=== PATIENT | female | born 1950 | race Two or more races ===

== ENCOUNTER 2017-02-13 07:30 | Inpatient (IN) | payer OTHER ==
[~2017-02-13] VITALS: Ht 152.4 cm; Wt 62.3 kg
[2017-05-01] VITALS (32 sets, daily range): BP systolic 84–151; BP diastolic 50–68; PULSE 83–108; RESP 10–20; Ht 152.4 cm; Wt 62.3 kg
--- NOTE | 2017-05-01 06:25 | PREOPHP ---
DATE OF ADMISSION: 05/01/2017 HISTORY OF PRESENT ILLNESS: This is a 66-year-old lady, 4, para 4, her last normal menstrua l period was at the age of 48. She was admitted for D and C, exploratory laparotomy, EDIN and BSO, p ossible supracervical hysterectomy if technically difficult. This patient has a history of a right ovarian cyst measuring 9 x 9 cm. She also has some bleeding a year ago on and off for a few days. She had attempted endometrial biopsy, but the cervix was stenotic. She claims that she may have vladimir e abnormal Pap smear many years ago, but she does not remember. PAST PERSONAL HISTORY: No history of TB, asthma. The patient has a history of hypertension. ALLERGIES: NO ALLERGIES. SOCIAL HISTORY: The patient does not smoke. She does not drink. MEDICATIONS: She takes medicine for her high blood pressure. GYNECOLOGIC HISTORY: She had menarche at the age of 10, every 28 days interval, 3 to 4 days duratio n, and moderate in amount. She is 4, para 4 with 4 normal deliveries. FAMILY HISTORY: Mother has high blood pressure and sister has diabetes. REVIEW OF SYSTEMS: CARDIOVASCULAR: No chest pains. RESPIRATORY: No cough. GASTROINTESTINAL: No diarrhea, no vomiting. GENITOURINARY: No dysuria. PHYSICAL EXAMINATION: GENERAL: Reveals a conscious coherent lady and in no acute distress. VITAL SIGNS: Her blood pressure 120/80, pulse rate 80 per minute, respirations 16 per minute. BREASTS, HEART, AND LUNGS: Within normal limits. ABDOMEN: Soft. No tenderness noted. PELVIC: Revealed the cervix to be firm, uterus of normal size, pelvic mass is noted, 9 x 9 cm. RECTAL: Confirmed the pelvic findings. EXTREMITIES: No pedal edema. ADMITTING DIAGNOSIS: Right ovarian cyst, postmenopausal bleeding, and chronic hypertension. PLAN: The patient was planned to have the above procedure. Dictated By: ARIEL MCKINNEY/CLIFFORD Conf#: [id number] DID#: [id number]
[2017-05-01] MEDS ORDERED: LISI-313 PO (06:52)
[2017-05-01] MEDS ORDERED: ROCURONIUM 50 MG INJ ONE (07:25)
[2017-05-01] MEDS ORDERED: SUCCINYLCHOLINE CHLORIDE 100 MG/5 ML SYG IV ONE (07:25)
[2017-05-01] MEDS ORDERED: MIDAZOLAM 1 MG/ML 2 ML INJ ONE (07:25)
[2017-05-01] MEDS ORDERED: LIDOCAINE 2% (SDV) 5 ML INJ ONE (07:25)
[2017-05-01] MEDS ORDERED: PROPOFOL 20 ML ONE (07:25)
[2017-05-01] MEDS ORDERED: FENTAnyl 50 MCG/ML VIAL ONE (07:29)
[2017-05-01] MEDS ORDERED: CEFAZOLIN 1 GM INJ ONE (07:35)
[2017-05-01] MEDS ORDERED: EPHEDrine SULFATE 50 MG/5 ML SYG ONE (07:35)
[2017-05-01] MEDS ORDERED: FAMOTIDINE 20 MG INJ ONE (07:55)
[2017-05-01] MEDS ORDERED: ONDANSETRON 4 MG INJ ONE (07:55)
[2017-05-01] MEDS ORDERED: HYDROmorphONE 2 MG/ML SYG ONE (07:55)
[2017-05-01] MEDS ORDERED: DEXAMETHASONE 4 MG/ML 1 ML INJ ONE (07:55)
[2017-05-01] MEDS ORDERED: MEPERIDINE 25 MG INJ IV PRN (08:30)
[2017-05-01] MEDS ORDERED: HYDROmorphONE 0.2 MG/ML PCA IV SCH (08:30)
[2017-05-01] MEDS ORDERED: PROCHLORPERAZINE 10 MG INJ IV PRN (08:30)
[2017-05-01] MEDS ORDERED: KETOROLAC 15 MG INJ IV PRN (08:30)
[2017-05-01] MEDS ORDERED: HYDROmorphONE 1 MG/ML SYG IV PRN ×2 (08:30)
[2017-05-01] MEDS ORDERED: FENTAnyl 50 MCG/ML VIAL IV PRN ×2 (08:30)
[2017-05-01] MEDS ORDERED: DIPHENHYDRAMINE 50 MG INJ IV PRN ×2 (08:30)
[2017-05-01] MEDS ORDERED: HYDROmorphONE (0.2 MG/ML) 10ML SYG IV PRN ×2 (08:30)
[2017-05-01] MEDS ORDERED: NALOXONE (0.4 MG/ML) INJ IV PRN (08:30)
[2017-05-01] MEDS ORDERED: ZOLPIDEM 5 MG TAB PO PRN (08:30)
[2017-05-01] MEDS ORDERED: ONDANSETRON 4 MG INJ IV PRN ×3 (08:30→10:00)
[2017-05-01] MEDS ORDERED: KETOROLAC 30 MG INJ ONE (08:51)
[2017-05-01] MEDS ORDERED: hydrALAzine 20 MG INJ ONE (08:57)
[2017-05-01] MEDS ORDERED: LABETALOL HCL 20MG INJ IV PRN (09:00)
[2017-05-01] MEDS ORDERED: hydrALAzine 20 MG INJ IV PRN (09:00)
[2017-05-01] MEDS: HYDROmorphONE (0.2 MG/ML) 10ML SYG IV PRN ×2 (09:46→10:13)
[2017-05-01] MEDS: LACTATED RINGER'S 1,000 ML IV SCH ×2 (13:18→21:06)
[2017-05-02] VITALS: BP 134/73; PULSE 83
[2017-05-02 00:33] VITALS: BP 134/73; RESP 20
[2017-05-02] MEDS: LACTATED RINGER'S 1,000 ML IV SCH ×3 (03:30→14:20)
[2017-05-02 04:00] VITALS: BP 139/63; PULSE 90; RESP 18
[2017-05-02 05:53] LABS: ADD SCAN DIFF NO
[2017-05-02 05:57] LABS: BASOPHILS % 0.2 % (0.0-2.0); HEMATOCRIT 36.2 % (37.0-47.0); HEMOGLOBIN 11.7 g/dl (12.0-16.0); LYMPHOCYTES # 1.6 10^3/ul (0.8-2.9); LYMPHOCYTES % 13.4 % (15.0-51.0); MEAN CORPUSCULAR HEMOGLOBIN 30.2 pg (29.0-33.0); MEAN CORPUSCULAR HGB CONC 32.3 g/dl (32.0-37.0); MEAN CORPUSCULAR VOLUME 93.3 fl (82.0-101.0); MEAN PLATELET VOLUME 10.3 fl (7.4-10.4); MONOCYTE # 1.4 10^3/ul (0.3-0.9); MONOCYTES % 11.7 % (0.0-11.0); NEUTROPHILS % 74.5 % (39.0-77.0); PLATELET COUNT 213 10^3/UL (140-415); RED BLOOD COUNT 3.88 10^6/ul (4.20-5.40); WHITE BLOOD COUNT 12.1 10^3/ul (4.8-10.8)
[2017-05-02] MEDS ORDERED: BISACODYL 10 MG SUPP PR ONE ×2 (06:00→17:00)
[2017-05-02] MEDS ORDERED: MAGNESIUM HYDROXIDE 30ML CUP PO ONE ×2 (06:00→17:00)
--- NOTE | 2017-05-02 06:28 | OPR ---
DATE OF OPERATION: 05/01/2017 PREOPERATIVE DIAGNOSIS: Postmenopausal bleeding, right ovarian cyst. POSTOPERATIVE DIAGNOSES: 1. Right paratubal disease. 2. Pelvic adhesions. 3. Postmenopausal bleeding. 4. Perineal relaxation. SURGEON: Dr. Jara. WINDOW SHADE CUTTER AND MOUNTER: Dr. Louise. ANESTHESIA: General. OPERATION PERFORMED: Attempted fractional dilatation and curettage, exploratory laparotomy, total abdominal hysterectomy and bilateral salpingo- oophorectomy and lysis of pelvic adhesions and vaginal vault suspension. OPERATIVE TECHNIQUE: Under general anesthesia, the patient was prepped and draped in the usual fashion for vaginal surgery. Pelvic exam under anesthesia revealed the cervix to be firm and an 8 x 1 cm mass on the right adnexa was noted. Then, the heavy weight vaginal retractor was put in place and the anterior lip of the cervix was grasped with an Allis clamp. Endocervical dilatation was attempted. Multiple attempts were done, but the endocervix was stenotic so that the procedure was terminated. Then the patient's legs were put down and the patient was prepped and draped in the usual fashion for abdominal surgery. Then, a Pfannenstiel incision, about 12 cm skin incision was performed. The incision was carried from the skin up to the fascia. Upon opening the skin up to the fascia, small blood vessels were noted to be oozing and these were all cauterized. Fascia was opened transversely followed by splitting the muscles vertically and the peritoneum vertically. Upon opening the abdominal cavity, there was an 8 x 1 cm right mass, so that this was pulled out from the pelvic cavity. It was a right paratubal cyst so that 2 Tylor clamps were placed at the base of the paratubal cyst,and the cyst was excised. This was sent for frozen section and it was benign. At first a free tie with 0 Vicryl was used followed by Tylor suture. Bleeders were checked and there was no bleeding noted. The uterus was noted to be small, but because of postmenopausal bleeding, it was decided to do her hysterectomy as well, so that the 2 self-retaining retractors were put in place and the bladder blade was put in place. The were packed away from the operative field with the aid of 6 wet lap sponges. Upper blade was put in place. The bladder blade was put in place. Then, two 8-inch Kochers were placed at the paratubal and paraovarian ligament for traction. There were adhesions noted, the omentum to the left pelvic wall. All these adhesions were lysed by sharp and blunt dissection. Also, adhesions were noted on the right pelvic wall. All these adhesions were lysed by sharp and blunt dissection. Then, two 8-inch Kochers were placed at this paratubal as mentioned and paraovarian ligaments for retraction. The left round ligament was grasped with 2 Kochers and cut. The stick tie with 0 Vicryl was used and tied. Then the left broad ligament was skeletonized for the development of the bladder flap. Then, the left infundibulopelvic ligament was grasped with 2 Tylor clamps and pulled back with straight Jessica and cut. At first a free tie with 0 Vicryl was used and followed by Tylor suture. Bleeders were checked and there was no bleeding noted. Same thing was done on the right side. The right round ligament was grasped with 2 Kochers and cut. A stick tie with 0 Vicryl was used and tagged. The right broad ligament was skeletonized for the development of the bladder flap. Then, the right infundibulopelvic ligament was grasped with 2 Tylor clamps and pulled back with a straight Jessica and cut. A free tie with 0 Vicryl was used followed by Tylor suture. Once again, the bladder was from the cervix by sharp and blunt dissection. Then, the left uterine vessels were brought to view and grasped with 2 Tylor clamps and pulled back with straight Jessica and cut. A stick tie with 0 Vicryl was used on its clamp. Same thing was done on the right side. Bleeders were checked and there was no bleeding noted. Once again , the bladder was from the cervix by sharp and blunt dissection. The pelvis was noted to be very deep. Then, about 5 more Kochers were placed at the paracervical tissue on the left and right side, and on each clamp, the tissue was cut and a stick tie with 0 Vicryl was used. Then, the body of the uterus was excised. The remaining cervix was grasped with 2 single tooth tenaculum. Once again, the bladder wall was from the cervix by sharp and blunt dissection. Then about 4 more Kochers were placed at the paracervical tissue on the left and right side, and on its clamp, the tissue was cut and a stick tie with 0 Vicryl was used. Then the cervical vaginal angle was brought to view. This was grasped with 2 Tylor clamps, and the cervix was excised. Every specimen was sent to pathology for frozen section. According to the pathologist, the specimens were benign. Then the Tylor suture was used on its Tylor clamp. Then, another continuous suture with 0 Vicryl was used to reinforce the first suture at the vagina. The right angle of the vagina was sutured with the right paracervical tissue, and after checking for any bleeders, in which there was none, was tied with the right round ligament for vaginal vault suspension. Same thing was done on the left side. Irrigation was done to check for any bleeders and there was no bleeding noted. After checking for any bleeders in which there were none, after checking for all the stumps for any oozing, and there was none noted, then that whole area was covered with Surgicel. After correct sponge count, needle count and instrument count as confirmed by the medical technologist microbiology and ball mill operator, the abdomen was closed in the usual fashion using 0 Vicryl for the peritoneum, 0 Vicryl for the muscles, for the fascia 0 Vicryl continuous suture was used, followed by 2 [id number] sutures. For the subcutaneous tissue, it was closed with 3-0 Vicryl and the skin was closed with 3-0 Vicryl, subcuticular suture was used. The patient tolerated the procedure well. Estimated blood loss was 200 mL. Vital signs were stable during and after the procedure. Dictated By: ARIEL MCKINNEY/CLIFFORD Conf#: [id number] DID#: [id number] MTDD
[2017-05-02 06:34] LABS: ALBUMIN 3.7 g/dl (3.3-4.9); ALBUMIN/GLOBULIN RATIO 1.76; BILIRUBIN,INDIRECT 0.6 mg/dl (0-1.1); BILIRUBIN,TOTAL 0.6 mg/dl (0.2-1.3); CALCIUM 8.6 mg/dl (8.4-10.2); CREATININE 0.57 mg/dl (0.44-1.00); POTASSIUM 4.1 mmol/L (3.5-5.1); TOTAL PROTEIN 5.8 g/dl (6.1-8.1)
[2017-05-02 07:18] VITALS: BP 148/65; RESP 19
[2017-05-02] MEDS ORDERED: OXYCODONE/ACETAMINOPHEN (5/325) TAB PO PRN ×3 (10:00)
[2017-05-02 21:03] VITALS: BP 167/75; RESP 20
[2017-05-02 22:35] VITALS: BP 152/72
[2017-05-03] MEDS: LACTATED RINGER'S 1,000 ML IV SCH ×3 (00:04→19:30)
[2017-05-03 07:37] VITALS: BP 153/71; RESP 16
[2017-05-03 10:28] LABS: ADD SCAN DIFF NO
[2017-05-03 10:39] LABS: BASOPHILS % 0.2 % (0.0-2.0); HEMATOCRIT 35.4 % (37.0-47.0); HEMOGLOBIN 11.7 g/dl (12.0-16.0); LYMPHOCYTES # 1.2 10^3/ul (0.8-2.9); LYMPHOCYTES % 11.4 % (15.0-51.0); MEAN CORPUSCULAR HEMOGLOBIN 30.6 pg (29.0-33.0); MEAN CORPUSCULAR HGB CONC 33.1 g/dl (32.0-37.0); MEAN CORPUSCULAR VOLUME 92.7 fl (82.0-101.0); MEAN PLATELET VOLUME 10.5 fl (7.4-10.4); MONOCYTE # 0.9 10^3/ul (0.3-0.9); NEUTROPHIL # 8.3 10^3/ul (1.6-7.5); NEUTROPHILS % 78.9 % (39.0-77.0); PLATELET COUNT 199 10^3/UL (140-415); RED BLOOD COUNT 3.82 10^6/ul (4.20-5.40); RED CELL DISTRIBUTION WIDTH 12.7 % (11.5-14.5); WHITE BLOOD COUNT 10.5 10^3/ul (4.8-10.8)
[2017-05-03 10:48] LABS: ALBUMIN 3.9 g/dl (3.3-4.9); ALBUMIN/GLOBULIN RATIO 1.77; BILIRUBIN,INDIRECT 0.6 mg/dl (0-1.1); BILIRUBIN,TOTAL 0.6 mg/dl (0.2-1.3); CALCIUM 8.2 mg/dl (8.4-10.2); CREATININE 0.53 mg/dl (0.44-1.00); TOTAL PROTEIN 6.1 g/dl (6.1-8.1)
[2017-05-03 11:42] LABS: POTASSIUM 2.9 mmol/L (3.5-5.1)
[2017-05-03] MEDS: POTASSIUM CHLORIDE 250 ML IVPB SCH ×2 (13:40→18:26)
[2017-05-03] MEDS ORDERED: DIPHENOXYLATE/ATROPINE TAB PO STA (15:09)
[2017-05-03 20:27] VITALS: BP 153/74; RESP 16
[2017-05-03] MEDS ORDERED: POTASSIUM CHLORIDE (SR) 20 MEQ TAB PO SCH (21:00)
[2017-05-03 21:54] VITALS: BP 143/70
== END 2017-05-03 23:00 | disposition home or self-care (01) | DRG 743 ==
LOC: REC 05-01 05:37 → MS2 05-01 12:55
PROVIDERS: ADMIT Obstetrics & Gynecology; ATTEND Obstetrics & Gynecology
PROC: 0UT90ZZ Resection of Uterus, Open Approach (ICD-10-PCS; 2017-05-01)
PROC: 0UT20ZZ Resection of Bilateral Ovaries, Open Approach (ICD-10-PCS; 2017-05-01)
PROC: 0UTC0ZZ Resection of Cervix, Open Approach (ICD-10-PCS; 2017-05-01)
PROC: 0UT70ZZ Resection of Bilateral Fallopian Tubes, Open Approach (ICD-10-PCS; 2017-05-01)
PROC: 0USG0ZZ Reposition Vagina, Open Approach (ICD-10-PCS; 2017-05-01)
PROC: 0UJD8ZZ Inspection of Uterus and Cervix, Via Natural or Artificial Opening Endoscopic (ICD-10-PCS; principal; 2017-05-01 07:30)
DX: N95.0 Postmenopausal bleeding (principal); I10 Essential (primary) hypertension; N83.201 Unspecified ovarian cyst, right side; N81.89 Other female genital prolapse
CPT/HCPCS: 80053; 85025; 86850; 86900; 86901; 87086; 88307; J0360; J0690; J1100; J1170; J1885; J2250; J2405; J3010; J3480; J7120; J7999